=== PATIENT | male | born 1950 | race Caucasian/White ===

== ENCOUNTER 2025-03-28 10:51 | Outpatient (OUT) | payer MEDICARE, SELFPAY ==
--- OUTSIDE RECORDS SUMMARY | 2025-03-28 10:59 | XMS_ITS | Clinical Summary ---
Author Organization [facility] Healthcare Address [address] [place] [address] Care Team Providers Care Clinical Exercise Specialist Name Role Phone Unavailable Primary Care Provider Unavailabl e Allergies Active AllergyReactionsCriticalityNoted HzuxRswexmarMndbgcrmezBjriu73/23/2020 Medications MedicationSigDispense QuantityRefillsLast FilledStart DateEnd DateStatus valsartan (Diovan) 40 MG tablet Take 40 mg by mouth in the morning.12/07/2022ctive tamsulosin (Flomax) 0.4 MG 24 hr capsule 05/31/2022ctive Risankizumab-rzaa (Skyrizi Pen) 150 MG/ML solution auto-injector 03/04/2022ctive Valium 10 MG tablet Take 10 mg by mouth02/01/2023ctive carvedilol (Coreg) 12.5 MG tablet Active atorvastatin (Lipitor) 40 MG tablet Take 1 tablet by mouth Daily01/21/2023ctive aspirin 81 MG EC tablet Take 81 mg by mouth in the morning.Active Eliquis 5 MG tablet Take 1 tablet by mouth in the morning and 1 tablet before bedtime.06/03/2022 Active dutasteride (Avodart) 0.5 MG capsule Take 0.5 mg by mouth03/29/2023ctive Risankizumab-rzaa (Skyrizi Pen) 150 MG/ML solution auto-injector Indications:Psoriasis vulgarisInject 150 mg under the skin every 3 (three) months 1 mL 5Active Active Problems ProblemNoted DateDiagnosed DateAtherosclerosis of [place] coronary artery of [place] heart without angina goxbarcr79/24/2025hronic obstructive pulmonary disease (COPD)10/16/2024oronary angioplasty bklcev4410/16/2024Elevated PSA 10/16/2024Ischemic ykbfgbhktfghco12/24/2025Psoriasis /24/2025hronic systolic heart igaxssm2409/28/2024bdominal aortic aneurysm (AAA)09/23/2023enign prostatic hyperplasia with urinary /31/2024igarette smoker 09/23/2023High prostate specific antigen (PSA)09/23/2023Thoracoabdominal aortic aneurysm (TAAA) without adjyaed5609/23/20239726Yhnnyofmocss99/16/2022 Moifcvibmbprzflflhcd62/16/2022aroxysmal atrial sjthmluwbrss23/10/2020 Encounters DateTypeDepartmentCare PjnyRprnuhkqfpl05/12/2025 1:30 PM ESTOffice Visit [facility] [address] [place] [address] Jacqueline East MD Basal cell carcinoma of skin of scalp and neck03/06/20258380Seqhvm67/12/2025 Telephone [facility] [address] [place] [phone] Jessica Nolan LPN [employer] PAP reapproved -6104/27/2024Results Follow-Up [facility] [address] [place] [address] Tracey Light MD QuantiFERON TB GOLD PLUS, QUANTIFERON-TB GOLD PLUS02/25/2025Results Follow-Up [facility] [address] [place] [phone] Tracey Light MD Dermatopathology exam02/19/2025 9:20 AM EDTOffice Visit [facility] [address] [place] [address] Tracey Light MD Psoriasis vulgaris (Primary Dx); History of basal cell carcinoma; History of SCC (squamous cell carcinoma) of skin; Actinic keratosis; Lentigines; Neoplasm of unspecified behavior of bone, soft tissue, and skin02/19/2025Orders Only [facility] External Department Unsolicited Tracey Light MD 02/19/2025amboo flowsheet [facility] [address] [place] [address] Tracey Light MD 02/19/2025Travelfrom Last 3 Months Family History Medical HistoryRelationNameCommentsHypertensionFatherLung cancerFatherDementia MotherHeart attackMotherHeart diseaseMotherMental illnessMotherMelanomaNeg Hx Multiple myelomaNeg HxRelationNameStatusCommentsFatherDeceasedMotherAlive Social History Tobacco UseTypesPacks/DayYears UsedDateSmoking Tobacco: Every DayCigarettes Smokeless Tobacco: Never Tobacco Cessation:Ready to Q uit: Not Asked; Counseling Given: Not Answered Alcohol UseStandard Drinks/WeekCommentsYes0 (1 standard drink = 0.6 oz pure alcohol)caffeine more than 4 cups/daySex and Gender InformationValueDate RecordedSex Assigned at BirthNot on fileLegal DmrRjyu4207/07/2022 6:34 PM EDT Gender IdentityNot on fileSexual OrientationNot on file Last Filed Vital Signs Vital SignReadingTime TakenCommentsBlood Hffuzlho988/8111 4:36 PM EST Pulse--Temperature--Respiratory Rate--Oxygen Saturation--Inhaled Oxygen Concentration--Hnohcq55.7 kg (200 lb)12/21/2021 12:00 PM YCBSvjziu550.8 cm (5' 10 )08/16/2022 12:00 PM EDTBody Mass Index28.705 12:00 PM EDT Plan of Treatment DateTypeDepartmentCare Team (Latest Contact Info)Qoqlbbrguln06/28/2026 10:15 AM EDTOffice Visit [facility] [address] [place] [address] Tracey Light MD [address] [place] [address] Health MaintenanceDue DateLast DoneCommentsCT Jwbrorkaqpty22/10/1950FIT-DNA 1949FIT1949FOBT1949Tyaujnsjtijyv08/10/1950COVID-19 Vaccine ( season), 02/18/2023, 02/11/2021, Additional history iqiuvaEhensnzykyi23/05/10059204/29/2024, 02/27/2025, 02/27/2025olorectal Cancer Tjsgplmwa13/05/2035Pneumococcal Vaccine: 65+ NrsorHgslsvonl75/21/2017, 11/10/2015, 02/24/2015Influenza VvkcediPfsntajpg99/14/2025, 02/16/2024, 02/18/2023, Additional history exists Procedures Procedure NamePriorityDate/TimeAssociated DiagnosisCommentsFLOWERS HOS[facility]ITAL SURGERYRoutine 03/06/2025 4:30 PM EST Basal cell carcinoma of skin of scalp and neck QUANTIFERON-TB GOLD HONXSobrvpx65/28/2025 10:35 AM EDT QUANTIFERON TB GOLD OZYVIrbtufd49/28/2025 10:35 AM EDT SKIN / NAIL RUJFRNPvmlhqf83/28/2025 9:55 AM EDT Neoplasm of unspecified behavior of bone, soft tissue, and skin CRYOTHERAPY SKIN SRJPPQRnhtgbo47/28/2025 9:53 AM EDT Actinic keratosis DERMATOPATHOLOGY YMXYSvxqeiw03/28/2025 12:00 AM EDT Neoplasm of unspecified behavior of bone, soft tissue, and skin from Last 3 Months Results * Mohs surgery (03/06/2025 4:30 PM EST) Narrative Vivian Castro MA - 03/06/2025 4:30 PM EST Consent obtained: written [place] Protocol: Procedure explained and questions answered to patient or proxy's satisfaction: Yes ?? Test results available and properly labeled: Yes ?? Pathology report reviewed: Yes ?? External notes reviewed: Yes ?? Photo or diagram used for site identification: Yes ?? Site/side marked: Yes ?? Slide independently reviewed by Mohs surgeon: Yes ?? Anticoagulation: Is the patient taking prescription anticoagulant and/or aspirin prescribed/recommended by a physician? Yes ?? Was the anticoagulation regimen changed prior to Mohs? No ?? Anesthesia: Anesthesia method: local infiltration Local anesthetic: lidocaine 1% WITH epi and sodium bicarbonate Procedure Details: Timeout: pre-procedure verification complete Procedure Prep: patient was prepped and draped in usual sterile fashion Biopsy accession number: [id number] Biopsy lab: [facility] Date of biopsy: 02/19/2025 Frozen section biopsy performed: No ?? 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 Comments: The area was prepped with Hibiclens, draped in a sterile fashion, and infiltrated with local anesthetic. Sterile technique was used throughout the procedure. The marked area of clinical tumor with a small rim of clinically normal surrounding skin was removed using Mohs technique with beveled edges. Hash viveros were placed for orientation of the specimen. Hemostasis was achieved with electrodessication. After hemostasis, the defect was measured and recorded, a temporary sterile dressing was placed over the wound, and the patient was escorted to the waiting area. The specimen was oriented, mapped, and if necessary, divided into sections. A Mohs map was prepared. The specimen was placed in a labeled barbara dish and was taken to the Mohs lab where it was chromacoded and processed. Mohs sections were prepared with serial tissue sections, stained, and evaluated by Dr. East for interpretation of deep and peripheral margins. The Mohs map was marked accordingly. Amount of lidocaine used: 2.5 cc Estimated blood loss: <1.0 cc Defect size: 1.2 x 1.2 cm Number of blocks per stage: 1 Number of positive blocks: 1 ?? Tumor features identified on Mohs section: squamous cell carcinoma ?? Tumor features identified on Mohs section comment: Well-differentiated SCC in dermis ?? Depth of tumor invasion after stage: dermis Stage 2 ?? Comments: The patient returned to the procedure room, the dressing was removed, the tumor area was re-prepped and draped, and anesthesia was assessed and augmented as necessary. A layer of tissue around the positive margin(s) was removed, and the tissue was oriented, mapped, and processed in an identical fashion as for Stage 1. Hemostasis was achieved and dressing placed as in Stage 1. The patient was escorted to the waiting area. As with Stage 1, Mohs sections were prepared with serial tissue sections, stained, and evaluated by Dr. East for interpretation of deep and peripheral margins. The Mohs map was updated. Assistants: Sarai Castro CMA Amount of lidocaine used: 1.0 cc Estimated blood loss: <1.0 cc Defect size: 1.2 x 1.2 cm Number of blocks: 1 Number of positive blocks: 0 Tumor free margins were obtained and the Mohs procedure was considered complete. Patient tolerance of procedure: tolerated well, no immediate complications Reconstruction: Was the defect reconstructed?: No ?? Authorizing ProviderResult TypeResult StatusCourtyanet East MDDERM PROCEDURE ORDERABLESFinal Result * QUANTIFERON-TB GOLD PLUS (02/19/2025 10:35 AM EDT)ComponentValueRef RangeTest MethodAnalysis TimePerformed AtPathologist SignatureQFTB CRITERIAComment [facility]ABCORPComment: QuantiFERON-TB Gold Plus is a qualitative indirect test for M tuberculosis infection (including disease) and is intended for use in conjunction with risk assessment, radiography, and other medical and diagnostic evaluations. The QuantiFERON-TB Gold Plus result is determined by subtracting the Nil value from either TB antigen (Ag) value. The Mitogen tube serves as a control for the test. TB1-NIL0.04IU/mLLABCORPTB2-NIL0.01IU/mLLABCORPNIL0.01IU/mLLABCORPMITOGEN-NIL >10.00IU/mLLABCORPSpecimen (Source)Anatomical Location / LateralityCollection Method / VolumeCollection TimeReceived Time02/19/2025 10:35 AM EDT1 Narrative [facility] - 02/21/2025 6:07 PM EDT Performed at: [address] [place] [address] ??[id number] Director Of Market Intelligence: Luis E Mendiola PhD, Phone: ??[phone] Authorizing ProviderResult TypeResult StatusEmily Gabrielle Storone BLOOD ORDERABLESFinal ResultPerforming OrganizationAddressty/State/ZIP CodePhone Number [facility] * QuantiFERON TB GOLD PLUS (02/19/2025 10:35 AM EDT)ComponentValueRef RangeTest MethodAnalysis TimePerformed AtPathologist SignatureQUANTIFERON TB GOLD INCUBATIONIncubation performed.[facility]ABCORPQUANTIFERON(R)-TB GOLD PLUS, 1 TUBE NegativeNegativeLABCORPComment: No response to M tuberculosis antigens detected. Infection with M tuberculosis is unlikely, but high risk individuals should be considered for additional testing (ATS/IDSA/CDC Clinical Practice Guidelines, 2017). The reference range is an Antigen minus Nil result of <0.35 IU/mL. Chemiluminescence immunoassay methodology Specimen (Source)Anatomical Location / LateralityCollection Method / Volume Collection TimeReceived Time02/19/2025 10:35 AM EDT1 Narrative [facility] - 02/21/2025 6:07 PM EDT Performed at: - [address] ??[id number] Director Of Market Intelligence: Luis E Mendiola PhD, Phone: ??[phone] Authorizing ProviderResult TypeResult StatusEmily Gabrielle Storone BLOOD ORDERABLESFinal ResultPerforming OrganizationAddressty/State/ZIP CodePhone Number [facility] * Lesion biopsy (02/19/2025 9:55 AM EDT) Narrative Leila Martinez MA - 02/19/2025 9:55 AM EDT Type of biopsy: tangential Informed consent: discussed and consent obtained ?? Informed consent comment: ??The risks and benefits of the biopsy were discussed. Risks include but are not limited to bleeding, infection, scarring, pain, and nerve damage. An opportunity to ask questions prior to the procedure was permitted and all questions were answered. Patient was prepped and draped in usual sterile fashion: area cleansed with alcohol. Anesthesia: the lesion was anesthetized in a standard fashion ?? Anesthetic: ??1% lidocaine w/ epinephrine 1-100,000 buffered w/ 8.4% NaHCO3 Instrument used: DermaBlade ?? Hemostasis achieved with: electrodesiccation ?? Outcome: patient tolerated procedure well ?? Outcome comment: ??The specimen was placed in a prelabeled formalin container to be sent for pathology Post-procedure details: sterile dressing applied and wound care instructions given ?? Post-procedure details comment: ??Emphasized need to contact clinic for any signs of infection, uncontrollable bleeding, or complications. Dressing type: bandage ?? Additional details: ??Photo taken yes Amount of lidocaine used: 0.5 cc Authorizing ProviderResult TypeResult StatusEmily A Petitti MDDERM PROCEDURE ORDERABLESFinal Result * Cryotherapy, skin lesion (02/19/2025 9:53 AM EDT) Narrative Authorizing ProviderResult TypeResult StatusEmily A Petitti MDDERM PROCEDURE ORDERABLESFinal Result * Dermatopathology exam (02/19/2025 12:00 AM EDT)ComponentValueRef RangeTest MethodAnalysis TimePerformed AtPathologist SignatureSPECIMEN TYPE SPECIMEN: LEFT NECK [place] [id number] Code C44.42AURORA DIAGNOSTICSPROTOCOLF - FLATAURORA DIAGNOSTICSFinal DiagnosisWELL DIFFERENTIATED INVASIVE SQUAMOUS CELL CARCINOMA. COMMENT: The tumor is present at the peripheral edges of the tissue. [place] DIAGNOSTICSGross TextAURORA DIAGNOSTICSMicroscopic DescriptionMicroscopic examination performed.[place] [id number]*1A[facility]A DIAGNOSTICSSpecimen (Source)Anatomical Location / LateralityCollection Method / VolumeCollection TimeReceived TimeSkinTopography unknown / Hmsdcyi2802/19/2025 9:55 AM EDTComment: Differential Diagnosis: SCC vs hannah cell Check Margins: No Size of lesion: 1.0 x 1.0 cm Narrative Authorizing ProviderResult TypeResult StatusEmily A Petitti MDLAB PATHOLOGY ORDERABLESEdited Result - FinalPerforming OrganizationAddressCity/State/ZIP Code Phone Number [place] from Last 3 Months Insurance
--- OUTSIDE RECORDS SUMMARY | 2025-03-28 10:59 | XMS_ITS | Clinical Summary ---
Author Organization [employer] s tem Address [id number] [address] [place] [address] Care Team Providers Care Pulling Machine Operator Name Role Phone ShamirLeonard Kt BUENO Primary Care Provider + [phone] Allergies Active AllergyReactionsCriticalityNoted VoinFwktqrrhXgpyublrfnVszmkTwm02/23/2020 Medications MedicationSigDispense QuantityRefillsLast FilledStart DateEnd DateStatus aspirin 81 mg Take 1 tablet (81 mg total) by mouth in the morning.Active tamsulosin (FLOMAX) 0.4 mg capsule Take 1 capsule (0.4 mg total) by mouth.05/01/2021ctive dutasteride (AVODART) 0.5 mg capsule Active ELIQUIS 5 mg tablet TAKE 1 TABLET BY MOUTH IN THE MORNING AND BEFORE BEDTIME 180 tablet 4Active risankizumab-rzaa (SKYRIZI) 150 mg/mL pen injector Inject 150 mg under the skin.4Active atorvastatin (LIPITOR) 40 mg tablet Indications:Atherosclerosis of yomba shoshone coronary artery of yomb[place] shoshone heart without angina pectorisTAKE 1 TABLET BY MOUTH EVERY DAY 90 tablet 5Active valsartan (DIOVAN) 80 mg tablet Take 1 tablet (80 mg total) by mouth in the morning. 90 tablet 5Active carvediloL (COREG) 12.5 mg tablet Take 1 tablet (12.5 mg total) by mouth in the morning and at bedtime. 180 tablet 5Active carvediloL (COREG) 12.5 mg tablet Take 1 tablet (12.5 mg total) by mouth in the morning and 1 tablet (12.5 mg total) before bedtime. 180 tablet /Discontinued sodium,potassium,mag sulfates (SUPREP) 17.5-3.13-1.6 gram recon soln Take 177 mL by mouth 2 (two) times a day. 4956 mL Discontinued(Therapy completed) Active Problems Patient Care Coordination No te Formatting of this note migh t be different from the original. Hyperlipidemia & AFIB Careplan: Nurse to instruct on: the purpose of your medications and the importance of adherence the importance of your care plan the importance of preventative screenings and what they mean to your health proper use of your blood pressure meter your Hyperlipidemia and A Fib, its diagnosis and treatment the importance of recognizing dietary intake as a S&S of your Hyperlipidemia the importance of recognizing dizziness or lightheadedness, weakness or shortness of breath, and rapid and irregular heartbeat as a S&S of your A Fib Nurse to assist in: scheduling your appointments, as needed setting a goal to do regular physical activity, check blood glucose, get enough sleep, create a safe home environment, and continue with current treatment plans Patient to verbalize understanding of: the importance of your care plan keeping a written list of your medications preventative screenings and what they mean to your health your medications and the importance of adherence monitoring LDL cholesterol monitoring Lipids monitoring HDL cholesterol your A Fib, its diagnosis, process and treatment your Hyperlipidemia, its diagnosis, process and treatment the importance of recognizing palpitations or fluttering in the chest, rapid and irregular heartbeat, weakness or shortness of breath, and dizziness or lightheadedness as a S&S of your A Fib the importance of recognizing dietary intake as a S&S of your Hyperlipidemia Patient to commit to: get enough sleep create a safe home environment continue with current treatment plans get a blood pressure meter do regular physical activity measure HbA1c check blood glucose 2023 Wellness Goals: Over the next 12 months, Patient will go to appointments with: Emergency Dispatcher 10/17/2023 Primary Care Provider Vascular surgeon 05/24/2024 Over the next 12 months, Patient will complete the following tests, immunizations, and preventativescreenings: Flu vaccine COVID-19 Vaccination Annual Wellness Visit Tdap Vaccine Social Determinants of Health 2023 Education: Welcome letter mailed, careplan created, medrec completed - KT,HEAD ESTHETICIAN 10/12/23 ProblemNoted DateDiagnosed DatePolyp of transverse colon02/27/2025Psoriasis ttgfzapr36/24/2025hronic systolic heart repzuog8509/28/2024Thoracoabdominal aortic aneurysm (TAAA) without cckpqwv8809/23/2023bdominal aortic aneurysm (AAA) 09/23/2023enign prostatic hyperplasia with urinary ebirgupjqqf14/31/2024 Calculus of etmhvn0409/23/2023alculus of urinary jllldoi5909/23/2023igarette snmbuw4909/23/2023Gross fpqxihuez28/31/2024Microscopic /31/2024Elevated PSA09/23/20233902Gttpqvlk02/31/2024oor urinary bqqjoh9209/23/2023ost operative foreign body09/23/2023Ureteral stone09/23/2023Urge incontinence of urine 09/23/2023Urinary yzxorfw1609/23/2023Obesity (BMI 30.0-34.9)1Polyp of sigmoid colon02/27/2020Personal history of adenomatous and serrated colon polyps 02/15/2020 Overview (01/24/2024): Replacing Diagnosis that were inactivated after 01/23 regulatory import Paroxysmal atrial rwtgwxdyufij12/10/2020Tobacco abuse09/27/2019Hyperlipidemia 06/07/2017Vascular rpqdcjyf30/27/2014therosclerosis of [place] shoshone coronary artery of [place] shoshone heart without angina pectorisChronic obstructive pulmonary disease (COPD)Coronary angioplasty statusIschemic cardiomyopathy Resolved Problems ProblemNoted DateDiagnosed DateResolved DateAortic cnlzhbib28 Left heart wkjhyvh39Left ventricular wlddsjq9106/09/2017 Ehznohaiqdkm20/15/2018Heart uiwttpa0906/09/2017 Encounters DateTypeDepartmentCare CrarNtckudpywvn95/13/2025Refill [facility] [address] [place] [address] Fausto Hwang PA-C Med Ficdie3203/05/2025Results Follow-Up [facility] Endoscopy [address] [place] [address] Sanket Evans, DO Surgical Pzljevioy85/05/2025 9:00 AM EST - 02/27/2025 10:00 AM ESTSurgery [facility] [address] [place] [address] Sanket Evans, DO COLONOSCOPY DIAGNOSTIC / SCREENING [52698 (CPT??) +1 more]02/27/2025 7:56 AM EST - 02/27/2025 9:49 AM ESTHospital Encounter [facility] [address] [place] [address] Sanket Evans, DO Polyp of transverse colon, unspecified type (Primary Dx); Personal history of adenomatous and serrated colon polyps; History of colon polyps Discharge Disposition: Home02/27/20254173Hilllj64/04/2025 4:20 PM ESTSupport Visit [facility] - Pre Admit [address] [place] [address] 02/17/2025Orders Only [facility] [address] [place] [address] Sanket Evans, DO Personal history of adenomatous and serrated colon polyps (Primary Dx)01/24/2025 Orders Only [facility] [address] [place] [address] Leonard Barksdale DO 01/22/2025Telephone [facility] [address] [place] [address] Vickie Chou CMA 01/02/2025 7:30 AM EDT - 01/02/2025 11:59 PM EDTHospital Encounter [facility]ovascular [address] [place] [address] Sue Torres MD Chronic systolic heart failure ([facility]) Discharge Disposition: Home01/02/2025Results Follow-Up [facility] [address] [place] [address] Katlyn Diaz RN Echo complete W/O iovyrifv90/10/2025Travelfrom Last 3 Months Immunizations ImmunizationAdministration DatesNext DueInfluenza (IM) Preservative Free 01/16/2020,03/30/2016Influenza High Dose Preservative Free IM02/16/2024, 01/08/2019Influenza Vaccine, Quadrivalent, Kbwfkrfiip80/27/2023,01/19/2022, 02/08/2021Influenza, Trivalent, Xrwvrsntzd69/30/2018Influenza, Unspecified 02/18/2023,01/19/2022,02/08/2021,01/16/2020,01/08/2019,01/22/2018,03/30/2016 Pneumococcal Conjugate 13-Gnxixw0302/24/2015Pneumococcal Wuoltjrfiwuzah83/21/2017, 11/10/2015RSV, recombinant, protein subunit RSVpreF, adjuvant reconstituted, 0.5 mL, PF04/26/2023Tdap10/04/2013Zoster Live11/10/2015,02/24/2015 Family History Medical HistoryRelationNameCommentsNo Known ProblemsBrotherunknownLung cancer FatherNo Known ProblemsMaternal Grandfatherdied in his 70'sNo Known Problems Maternal Grandmotherdied in her 70'sHeart attackMotherNo Known ProblemsPaternal Grandfathernever knew himNo Known ProblemsPaternal Grandmotherdied around age 80 Heart diseaseSisters/p CABGHypertensionSisterRelationNameStatusCommentsBrother AliveFatherDeceasedMaternal GrandfatherMaternal GrandmotherMotherDeceased Paternal GrandfatherPaternal GrandmotherSisterAlive Social History Tobacco UseTypesPacks/DayYears UsedDateSmoking Tobacco: Every CjdYrqtnjllra831.5 Started: 09/23/1971Smokeless Tobacco: Never Tobacco Cessation:Ready to Q uit: Not Asked; Counseling Given: Not Answered Comments:Started at age 17 but wasn't smoking a PPD yet Alcohol UseStandard Drinks/WeekCommentsYes0 (1 standard drink = 0.6 oz pure alcohol)sociallyAHC UtilitiesAnswerDate RecordedIn the past 12 months has the electric, gas, oil, or water company threatened to shut off services in your home?No09/27/2023Social Connection and Isolation PanelAnswerDate RecordedIn a typical week, how many times do you talk on the phone with family, friends, or neighbors?Once a week10/02/2024How often do you get together with friends or relatives?Three times a week10/02/2024How often do you attend mosque or yarsanism services?Never10/02/2024Do you belong to any clubs or organizations such as mosque groups, unions, fraternal or athletic groups, or school groups?No 10/02/2024How often do you attend meetings of the clubs or organizations you belong to?Never10/02/2024re you , , , , never , or living with a partner?Jadtwyo5410/02/2024UDIT-CAnswerDate RecordedQ1: How often do you have a drink containing alcohol?2-4 times a month09/07/2022Q2: How many drinks containing alcohol do you have on a typical day when you are drinking?Patient does not drink09/07/2022Q3: How often do you have six or more drinks on one occasion?Never09/07/2022Overall Financial Resource Strain (CARDIA) AnswerDate RecordedHow hard is it for you to pay for the very basics like food, housing, medical care, and heating?Not hard at all09/07/2022HQ-2AnswerDate RecordedTotal Acjkg093Finjordan [facility] [place] of Occupational Health - Occupational Stress QuestionnaireAnswerDate RecordedDo you feel stress - tense, restless, nervous, or anxious, or unable to sleep at night because yourmind is troubled all the time - these days?Not at all09/07/2022Exercise Vital SignAnswer Date RecordedOn average, how many days per week do you engage in moderate to strenuous exercise (like a brisk walk)?0 days10/02/2024On average, how many minutes do you engage in exercise at this level?0 min10/02/2024PRAPARE - TransportationAnswerDate RecordedIn the past 12 months, has lack of transportation kept you from medical appointments or from getting medications?No 09/07/2022In the past 12 months, has lack of transportation kept you from meetings, work, or from getting things needed for daily living?No09/07/2022 Housing InstabilityAnswerDate RecordedAre you worried or concerned that in the next two months you may not have stable housing that you own, rent or stay in as a part of a household?No09/07/2022hildcareAnswerDate RecordedDo problems getting child care development specialist make it difficult for you to work or study?No09/07/2022 EmploymentAnswerDate RecordedDo you need help finding a local career center and/or a training program?No09/07/2022Hunger ScreeningAnswerDate RecordedWithin the past 12 months we worried whether our food would run out before we got money to buy more.Never True12/11/2024Within the past 12 months the food we bought just didn't last and we didn't have money to get more.Never True12/11/2024 Purpose - LifeAnswerDate RecordedI have a purpose and direction in my life.Agree 12/15/2022Sex and Gender InformationValueDate RecordedSex Assigned at BirthNot on fileLegal RsgQrna8911/28/2014 11:47 AM EDTGender IdentityNot on fileSexual OrientationNot on file Last Filed Vital Signs Vital SignReadingTime TakenCommentsBlood Qtaxzalx933/8611 9:42 AM EST Pgbvo338202/27/2025 9:42 AM HCFFcspefbmouw34.3 ??C (97.4 ??F)02/27/2025 9:27 AM ESTRespiratory Zwdg593804/29/2024 9:27 AM ESTOxygen Uwqskdlxhg20%02/27/2025 9:42 AM ESTInhaled Oxygen Concentration--Xidcbj01.5 kg (215 lb)02/27/2025 8:09 AM EST Grvkoi952.8 cm (5' 10 )02/27/2025 8:09 AM ESTBody Mass Index30.8502/27/2025 8:09 AM EST Plan of Treatment DateTypeDepartmentCare Team (Latest Contact Info)Niuwkxgibnn60/18/2026 9:20 AM EDTOffice Visit [facility] [address] [place] [address] Health MaintenanceDue DateLast DoneCommentsTobacco Fqqubgnmov85/10/1950COVID-19 Vaccine ( season), 02/18/2023, 01/19/2022, Additional history existsZoster (Shingles) Vaccine (2 of 2), 11/10/2015, 02/24/2015Depression Tmdyppewi06/01/2025Fall Risk Dmoalihwn21/01/2025Medicare Annual Wellness Visit/01/2025, 09/27/2023, 09/07/2022Tobacco Wysgoegdk91/08/2024DTaP,Tdap and Td Vaccines (3 - Td or Tdap), 10/04/2013RSV ( or age 60+ yrs)Gbeyejtct55/02/2024bdominal Aortic Aneurysm (AAA) ScreenCompleted 09/23/2023, 10/28/2022, 09/08/2021, Additional history existsInfluenza Vaccine Uxhvxqzql37/14/2025, 02/16/2024, 02/18/2023, Additional history exists Goals GoalPatient Goal TypeAssociated ProblemsRecent ProgressPatient-Stated?Author Autogenerated Goal Care PlanAutogenerated ProblemNoPotts, Erica [employer] Not on file Procedures Procedure NamePriorityDate/TimeAssociated DiagnosisCommentsSURGICAL PATHOLOGY Evnimbk1702/27/2025 9:05 AM EST History of colon polyps [place] COLORECTAL SCRN; HI RISK IND02/27/2025 8:47 AM EST History of colon polyps [place] COLONOSCOPY FLX DX W/COLLJ SPEC WHEN PFRMD104/29/2024 8:47 AM EST History of colon polyps PROVATION GXXOBNPSPKDZrjbowg90/05/2025 7:59 AM EST SWXIBIAKNMA20/05/2025 7:14 AM EST ECHO COMPLETE WO CAEEZHTQVrpiubq40/10/2025 8:24 AM EDT Chronic systolic heart failure ([facility]) from Last 3 Months Results * Surgical Pathology (02/27/2025 9:05 AM EST)ComponentValueRef RangeTest Method Analysis TimePerformed AtPathologist SignatureCase ReportSurgical Pathology Report ? Case: [id number] ? Authorizing Provider: ??Sanket Evans, DO ? Collected: ? 02/27/2025 0905 ? Ordering Location: ? [facility] ? Received: ?02/27/2025 1217 ? [facility] - ? Endoscopy ? Pathologist: ? Rosa Elena Lawson MD ? Specimen: ?Colon, Colon bx 75cm x2 ? 03/05/2025 10:45 AM [facility]Final DiagnosisColon at 75 cm, polypectomy: Tubular adenomas.03/05/2025 10:45 AM [facility] at 1045 ESTGross DescriptionReceived in formalin labeled MENDOZA, colon BX x 2 at 75 cm are 3 tabares bits of soft tissue, rangingfrom 0.1-0.4 cm in greatest dimension. Filtered and submitted in a single cassette. (1, ns, [id number], m7) MG03/05/2025 10:45 AM [facility]ORY[facility]ded Dcknjq0603/05/2025 10:45 AM [facility] Specimen (Source)Anatomical Location / LateralityCollection Method / Volume Collection TimeReceived TimeTissueColon structure / Ckkomqt7902/27/2025 9:05 AM EST02/27/2025 12:17 PM ESTComment:Pre-op diagnosis: history of colon polyps Narrative Authorizing ProviderResult TypeResult StatusJocecilio Evans DOPATHOLOGY/CYTOLOGY ORDERABLESFinal ResultPerforming OrganizationAddressCity/State/ZIP CodePhone Number [facility] [address] [place] [address], [facility] [address] [place] [address], * Colonoscopy Report (02/27/2025 7:59 AM EST)Specimen (Source)Anatomical Location / LateralityCollection Method / VolumeCollection TimeReceived Time Narrative SYSTEMGENERATED, DOCUMENTATION - 02/27/2025 7:59 AM EST This order has been auto-finalized for image and report archival in PACs. *For full report details, please reach out to your physician. ??This image is visible to you in MyChart.* Authorizing ProviderResult TypeResult StatusJocecilio Evans DOIMG OR IMG ORDERABLES Final Result * Colonoscopy (02/27/2025 7:14 AM EST)Specimen (Source)Anatomical Location / LateralityCollection Method / VolumeCollection TimeReceived Time02/27/2025 7:14 AM EST Narrative PM CARDIOVASCULAR - 02/27/2025 10:12 AM EST [facility] Patient Name: Harvey Mendoza ?? Procedure Date No Time: 02/27/2025 ?? CSN : [id number] Date of : 1950 Admit Type: Outpatient Age: 74 Room: [place] [address] Gender: Male Note Status: Automatic Developer Override Attending MD: Sanket Evans DO, Procedure: ? Colonoscopy Providers: ? Sanket Evans DO Referring MD: ?Sanket Evans DO Procedure: ? After I obtained informed consent, the scope was ? passed under direct vision. Throughout the procedure, ? the patient's blood pressure, pulse, and oxygen ? saturations were monitored continuously. The [facility] ? PCF-H190DL # [id number] PEDIATRIC COLONOSCOPE was ? introduced through the anus and advanced to. Estimated Blood Loss: ?? Automatic Developer Override Sanket Evans DO Number of Addenda: 0 Note Initiated On: 02/27/2025 7:14 AM Procedure Note Sanket Evans DO - 02/27/2025 [facility] Patient Name: Harvey Mendoza Procedure Date No Time: 02/27/2025 CSN : [id number] Date of : 1950 Admit Type: Outpatient Age: 74 Room: [place] [address] Gender: Male Note Status: Automatic Developer Override Attending MD: Sanket Evans DO, Procedure: Colonoscopy Providers: Sanket Evans DO Referring MD: Sanket Evans DO Procedure: After I obtained informed consent, the scope was passed under direct vision. Throughout theprocedure, the patient's blood pressure, pulse, and oxygen saturations were monitored continuously. [facility]-H[facility]DL # [id number] PEDIATRIC COLONOSCOPE was introduced through the anus and advanced to. Estimated Blood Loss: Automatic Developer Override Sanket Evans DO Number of Addenda: 0 Note Initiated On: 02/27/2025 7:14 AM Authorizing ProviderResult TypeResult StatusJocecilio Evans DOGI PROCEDURE ORDERABLESEdited Result - FinalPerforming OrganizationAddressCity/State/ZIP Code Phone Number CARDIOVASCULAR * Echo complete W/O contrast (01/02/2025 8:24 AM EDT)ComponentValueRef RangeTest MethodAnalysis TimePerformed AtPathologist SignatureLVOT stroke cusjay348.62ml XCELERALV Systolic Hpjnbj62.46lPYGBXOVRKO66%YBGKQRKAE1914 - 44 %XCELERALV Diastolic Niabcb984.92zPJQERJHAPHQWa1.07hsSPZFQNYJYQPh4.65naEBTSOOGKYJ6.100.6 - 1.1 cmXCELERAPW0.900.6 - 1.1 cmXCELERALVOT diameter3.11bfQULYFLGAFQ8.81cm/s XCELERAMV TDI E' (medial)3.26cm/sXCELERALA Volume Index49.2mL/o8VPEDZWPL/A ratio0.85XCELERAE wave deceleration abwl182.00msecXCELERAMV Peak E Vel66.00 cm/sXCELERAMV Peak A Vel77.60cm/sXCELERALA size4.10cmXCELERAAortic root3.80cm XCELERALA apxezh352.72hs1IWUBFSBFL diastolic dimension (basal)43.0mmXCELERA TAPSE2.38cmXCELERAAV peak xkh444.00cm/sXCELERALVOT peak vel0.63m/sXCELERAAV VTI38.30cmXCELERALVOT peak VTI14.80cmXCELERAAV mean gradient6.00mmHgXCELERAAV peak bpyqjupg03.83mmHgXCELERAAI pressure 1/2 xsil829btUERERAYOK valve area2.73 XCELERAValve area - Index1.2XCELERAMV pressure 1/2 time82.00msXCELERAMR max vel4.80m/sXCELERAMV valve area p 1/2 method2.38st2HLEZMBMUA Peak Vel2.7m/s XCELERATR peak .52mmHgXCELERAPV peak gradient1.18mmHgXCELERALV ESV A2C90.00mLXCELERALV ESV A8K367.00mLXCELERALV RWT 2D30.00XCELERAEcho EF Eawuvcabs19%XCELERAAV Velocity Ratio0.39XCELERALeft Ventricle Mass 246.572722513604719fBRDREZAJewspeubzpcymavc Septum Diastolic Thickness by 2D11 cmXCELERAAscending aorta4.10cmXCELERARVID d4.2whYNDGPKNMPSQ48.7cm/sXCELERAEst. RA qtpzqtow6kuCdDPGBDXMQW area27.9ym7WDSRLAVVU Peak Systolic Dwkdotqv59kpPj XCELERAAnatomical RegionLateralityModalityChestN/AUltrasoundSpecimen (Source) Anatomical Location / LateralityCollection Method / VolumeCollection Time Received Time Narrative 01/02/2025 9:28 AM EDT Left Ventricle: Left ventricle is mildly dilated. Systolic function is low normal to mildly decreased with an ejection fraction of 50-55%. No segmental wall motion abnormalities. ?Right??Ventricle: Right ventricular size is mildly dilated. The right ventricular basal diameter is 43.0 mm. Systolic function is normal. Normal tricuspid annular plane systolic excursion. ?Left??Atrium: Left atrium is mildly dilated. Left atrium volume index is severely increased. The left atrial volume index is 49.2 mL/m2. ?Right??Atrium: Right atrium is moderately dilated. The right atrial area is 27.3 cm2. Left Ventricle Left ventricle is mildly dilated. There is borderline increased wall thickness/hypertrophy. Systolic function is low normal to mildly decreased with an ejection fraction of 50-55%. No segmental wall motion abnormalities. Grade I diastolic dysfunction (impaired relaxation) is present. Lateral E' is 3.81 cm/s. Medial E' is 3.26 cm/s. Right Ventricle Right ventricular size is mildly dilated. The right ventricular basal diameter is 43.0 mm. Systolicfunction is normal. Normal tricuspid annular plane systolic excursion. Normal systolic excursion velocity by TDI (>9.5 cm/s). Left Atrium Left atrium is mildly dilated. Left atrium volume index is severely increased. The left atrial volume index is 49.2 mL/m2. Right Atrium Right atrium is moderately dilated. The right atrial area is 27.3 cm2. IVC/SVC IVC appears dilated with increased right atrial pressure. There is normal collapse with deep inspiration. Mitral Valve Mitral valve structure is normal. The leaflets exhibit normal excursion. There is mild regurgitation. There is no evidence of mitral valve stenosis. Tricuspid Valve Tricuspid valve appears to be normal. The leaflets exhibit normal excursion. There is trace to mildregurgitation. There is no evidence of tricuspid valve stenosis. RVSP calculated at 36 mmHg. RVSP is based on RA pressure of 8 mmHg. Aortic Valve The aortic valve is trileaflet. The leaflets exhibit normal excursion. There is mild sclerosis. There is trace to mild regurgitation. There is no evidence of aortic valve stenosis. Pulmonic Valve Pulmonic valve structure is grossly normal. The leaflets exhibit normal excursion. There is trace regurgitation. There is no evidence of pulmonic valve stenosis. The peak gradient is 1.18 mmHg. Ascending Aorta The aortic root is normal in size. Prominent Ascending Aorta noted. Pericardium There is no pericardial effusion. Study Details A complete echo was performed using complete 2D, color flow Doppler and spectral Doppler. Overall the study quality was good. Wall Scoring Baseline Score Index: 1.00 The left ventricular wall motion is normal. Authorizing ProviderResult TypeResult StatusChukwuezee Torres MDCV ECHO ORDERABLESFinal Result from Last 3 Months Additional Health Concerns Active ProblemsNoted DateDiagnosed DateAutogenerated Qxdowso9401/22/2025 Insurance Care Teams Team MemberRelationshipSpecialtyStart DateEnd Date Leonard Barksdale DO [address] [place] [address] PCP - GeneralFamily Medicine04/28/17 Rosalina Lorenz [facility] Nurse - [facility]10/12/23
--- OUTSIDE RECORDS SUMMARY | 2025-03-28 10:59 | XMS_ITS | Clinical Summary ---
Author Organization [facility] Address [address] [place] [address] Phone Care Team Providers Care Girls Swimming Coach Name Role Phone Unavailable Primary Care Provider Unavailabl e Social History Tobacco UseTypesPacks/DayYears UsedDateSmoking Tobacco: Never AssessedSex and Gender InformationValueDate RecordedSex Assigned at BirthNot on fileLegal Sex Male03/20/2022 4:03 PM ESTGender IdentityNot on fileSexual OrientationNot on file Plan of Treatment Not on file
[2025-03-28 12:07] LABS: Prostate Specific Antigen Dx 0.73 ng/mL (<=4.00)
== END 2025-03-28 10:52 | disposition home or self-care (01) ==
LOC: LAB 10:55
PROVIDERS: PCP Family Medicine; Visit Provider Urology
DX: N40.1 Benign prostatic hyperplasia with lower urinary tract symptoms (principal)
CPT/HCPCS: 36415; 84153